=== PATIENT | male | born 1980 | race Caucasian/White ===

== ENCOUNTER 2019-07-01 08:54 | Emergency (ER) | payer BC ==
[~2019-07-01] VITALS: Ht 180.3 cm; Wt 123.8 kg
[2019-07-01 09:01] VITALS: Ht 180.3 cm; Wt 123.8 kg
[2019-07-01 09:56] LABS: CALCIUM 8.9 mg/dL (8.5-10.1); CARBON DIOXIDE 26.2 mmol/L (21-32); CHLORIDE SERUM 103 mmol/L (98-107); CREATININE SERUM 0.9 mg/dL (0.7-1.3); GFR1 > 60 mL/min; GLUCOSE SERUM 252 mg/dL (74-106); SODIUM SERUM 137 mmol/L (136-145)
[2019-07-01 10:11] LABS: ALBUMIN 3.7 g/dL (3.4-5.0); ALKALINE PHOSPHATASE 85 U/L (46-116); ALT/SGPT 82 U/L (16-63); AST/SGOT 34 U/L (15-37); BILIRUBIN TOTAL 0.77 mg/dL (0.20-1.00); TOTAL PROTEIN, SERUM 7.4 g/dL (6.4-8.2)
[2019-07-01 10:41] LABS: AMPHETAMINE QUAL UR NONE DETECTED (See below)
[2019-07-01 10:42] LABS: BASOPHIL % 0.5 % (0-2); PLATELET COUNT 147 x10^3mcL (130-400); RED CELL DISTRIBUTION WIDTH 12.8 % (11.5-14.5)
[2019-07-01 11:33] VITALS: BP 101/65
== END 2019-07-01 11:15 | disposition home or self-care (01) ==
LOC: ED 08:54
PROVIDERS: Specialist
DX: I48.0 Paroxysmal atrial fibrillation (principal); E11.9 Type 2 diabetes mellitus without complications; E66.9 Obesity, unspecified; J45.909 Unspecified asthma, uncomplicated
CPT/HCPCS: 36415; Q0092